=== PATIENT | male | born 1985 | race African-American/Black ===

== ENCOUNTER 2020-02-18 07:10 | Inpatient (IN) | payer MEDICAID ==
[~2020-02-18] VITALS: Ht 177.8 cm; Wt 101.5 kg
[2020-02-18 08:24] LABS: BASO % 0 % (0-3); EOS # 0.1 x10^3/uL (0.0-0.7); EOS % 2 % (0-3); HEMATOCRIT 34.4 % (39.0-53.0); HEMOGLOBIN 11.5 g/dL (13.0-17.5); LYMPH # 0.9 x10^3/uL (1.0-4.8); LYMPH % 15 % (24-48); MEAN CORPUSCULAR HEMOGLOBIN 30 pg (25-35); MEAN CORPUSCULAR HGB CONC 34 g/dL (31-37); MEAN CORPUSCULAR VOLUME 89 fL (79-100); MONO # 0.4 x10^3/uL (0.0-1.1); MONO % 8 % (0-9); NEUT # 4.2 x10^3/uL (1.8-7.7); NEUT % 75 % (31-73); PLATELET COUNT 228 x10^3/uL (140-400); RED BLOOD COUNT 3.89 x10^6/uL (4.30-5.70); RED CELL DISTRIBUTION WIDTH 16.6 % (11.5-14.5); WHITE BLOOD COUNT 5.6 x10^3/uL (4.0-11.0)
--- NOTE | 2020-02-18 08:36 | RAD ---
INDICATION: Shortness of air COMPARISON: None. FINDINGS: Single view of chest obtained. Cardiac silhouette is prominent in size. Right-sided dialysis catheter with tip projecting over the right atrial region. Interstitial and alveolar opacities bilaterally. Obliquely oriented line at the right lower chest but there is lung markings extending peripheral to it therefore most likely cause would be a skin fold rather than pleural line from pneumothorax. IMPRESSION: * Multifocal opacities throughout the bilateral lungs which can be seen with pulmonary edema or multifocal pneumonia. Superimposed pleural effusion is possible as well. Electronically signed by: Jalen Dawn MD (02/18/2020 8:33 AM) [id number]
[2020-02-18 08:47] LABS: CALCIUM 8.3 mg/dL (8.5-10.1); CREATININE 17.9 mg/dL (0.7-1.3); GFR 3.1; POTASSIUM 4.4 mmol/L (3.5-5.1)
[2020-02-18 08:53] LABS: ALBUMIN 3.2 g/dL (3.4-5.0); ALBUMIN/GLOBULIN RATIO 0.6 (1.0-1.7); MAGNESIUM 2.5 mg/dL (1.8-2.4); TOTAL BILIRUBIN 0.3 mg/dL (0.2-1.0); TOTAL PROTEIN 8.4 g/dL (6.4-8.2)
[2020-02-18 09:07] LABS: PROTHROMBIN TIME PATIENT 13.2 SEC (11.7-14.0)
[2020-02-18] MEDS ORDERED: PIPERACILLIN/TAZOBACTAM 2.25 GM in IV NORMAL SALINE 50ML 50 ML IV ONE (09:15)
[2020-02-18] MEDS ORDERED: PIPERACILLIN/TAZOBACTAM 3.375 GM in IV NORMAL SALINE 50ML 50 ML IV ONE (09:15)
--- NOTE | 2020-02-18 09:18 | PHYS DOC ---
Past Medical History Past Medical History: Asthma, HIV, Hypertension, Renal Disease, Renal Failure Past Surgical History: Other Additional Past Surgical Histo: DIALYSIS PERMACATH RIGHT CHEST Smoking Status: Never Smoker Alcohol Use: None General Adult EDM: Chief Complaint: SHORTNESS OF BREATH HPI: HPI: Patient is a 34 year old male who was brought here by EMS from home due to trouble breathing and nonproductive cough started yesterday. Patient had history of end-stage renal failure, on hemodialysis every Tuesday. Patient's last dialysis was on Tuesday. Patient said he was tested for COVID-19 a week ago at [facility] and it came back negative. Patient denies any abdominal pain, no nausea vomiting. Patient denies any fever. Patient could not lie flat on his back due to trouble breathing. Review of Systems: Review of Systems: Constitutional: Denies fever or chills. [] Eyes: Denies change in visual acuity. [] HENT: Denies nasal congestion or sore throat. [] Respiratory: Positive for cough and trouble breathing. Cardiovascular: Denies chest pain or edema. [] GI: Denies abdominal pain, nausea, vomiting, bloody stools or diarrhea. [] : Denies dysuria. [] Musculoskeletal: Denies back pain or joint pain. [] Integument: Denies rash. [] Neurologic: Denies headache, focal weakness or sensory changes. [] Endocrine: Denies polyuria or polydipsia. [] Lymphatic: Denies swollen glands. [] Psychiatric: Denies depression or anxiety. [] Heart Score: Risk Factors: Risk Factors: DM, Current or recent (<one month) smoker, HTN, HLP, family history of CAD, obesity. Risk Scores: Score 0 - 3: 2.5% MACE over next 6 weeks - Discharge Home Score 4 - 6: 20.3% MACE over next 6 weeks - Admit for Clinical Observation Score 7 - 10: 72.7% MACE over next 6 weeks - Early Invasive Strategies Current Medications: Current Medications Medications (Trade) Dose Ordered Sig/[place] Start Time Stop Time Status Last Admin Dose Admin Piperacillin Sod/ Tazobactam Sod 2.25 gm/Sodium Chloride 50 ml @ 100 mls/hr 1X ONCE 02/18/20 09:15 02/18/20 09:44 Piperacillin Sod/ Tazobactam Sod 3.375 gm/Sodium Chloride 50 ml @ 100 mls/hr 1X ONCE 02/18/20 09:15 02/18/20 09:44 UNV Allergies: Allergies: Allergies Coded Allergies Type Severity Reaction Last Updated Verified No Known Drug Allergies 02/18/20 No Physical Exam: PE: Constitutional: Well developed, well nourished, no acute distress, non-toxic appearance. [] HENT: Normocephalic, atraumatic, bilateral external ears normal, oropharynx moist, no oral exudates, nose normal. [] Eyes: PERRLA, EOMI, conjunctiva normal, no discharge. [] Neck: Normal range of motion, no tenderness, supple, no stridor. [] Cardiovascular:Heart rate regular rhythm, no murmur [] Lungs & Thorax: Decrease lung sounds to auscultation bilaterally, rales [] Abdomen: Bowel sounds normal, soft, no tenderness, no masses, no pulsatile masses. [] Skin: Warm, dry, no erythema, no rash. [] Back: No tenderness, no CVA tenderness. [] Extremities: No tenderness, no cyanosis, no clubbing, ROM intact, no edema. [] Neurologic: Alert and oriented X 3, normal motor function, normal sensory function, no focal deficits noted. [] Psychologic: Affect normal, judgement normal, mood normal. [] Current Patient Data: Labs: Laboratory Tests Test 02/18/20 08:07 White Blood Count 5.6 x10^3/uL (4.0-11.0) Red Blood Count 3.89 x10^6/uL (4.30-5.70) L Hemoglobin 11.5 g/dL (13.0-17.5) L Hematocrit 34.4 % (39.0-53.0) L Mean Corpuscular Volume 89 fL (79-100) Mean Corpuscular Hemoglobin 30 pg (25-35) Mean Corpuscular Hemoglobin Concent 34 g/dL (31-37) Red Cell Distribution Width 16.6 % (11.5-14.5) H Platelet Count 228 x10^3/uL (140-400) Neutrophils (%) (Auto) 75 % (31-73) H Lymphocytes (%) (Auto) 15 % (24-48) L Monocytes (%) (Auto) 8 % (0-9) Eosinophils (%) (Auto) 2 % (0-3) Basophils (%) (Auto) 0 % (0-3) Neutrophils # (Auto) 4.2 x10^3/uL (1.8-7.7) Lymphocytes # (Auto) 0.9 x10^3/uL (1.0-4.8) L Monocytes # (Auto) 0.4 x10^3/uL (0.0-1.1) Eosinophils # (Auto) 0.1 x10^3/uL (0.0-0.7) Basophils # (Auto) 0.0 x10^3/uL (0.0-0.2) Sodium Level 138 mmol/L (136-145) Potassium Level 4.4 mmol/L (3.5-5.1) Chloride Level 99 mmol/L (98-107) Carbon Dioxide Level 23 mmol/L (21-32) Anion Gap 16 (6-14) H Blood Urea Nitrogen 77 mg/dL (8-26) H Creatinine 17.9 mg/dL (0.7-1.3) H Estimated GFR (Cockcroft-Gault) 3.1 BUN/Creatinine Ratio 4 (6-20) L Glucose Level 90 mg/dL (70-99) Calcium Level 8.3 mg/dL (8.5-10.1) L Magnesium Level 2.5 mg/dL (1.8-2.4) H Total Bilirubin 0.3 mg/dL (0.2-1.0) Aspartate Amino Transferase (AST) 23 U/L (15-37) Alanine Aminotransferase (ALT) 21 U/L (16-63) Alkaline Phosphatase 55 U/L (46-116) Troponin I Quantitative 0.074 ng/mL (0.000-0.055) Total Protein 8.4 g/dL (6.4-8.2) H Albumin 3.2 g/dL (3.4-5.0) L Albumin/Globulin Ratio 0.6 (1.0-1.7) L Laboratory Tests 02/18/20 08:07 Laboratory Tests 02/18/20 08:07 Vital Signs: Vital Signs Date Time Temp Pulse Resp B/P (MAP) Pulse Ox O2 Delivery O2 Flow Rate FiO2 02/18/20 08:11 90 211/127 (155) 93 Nasal Cannula 4.0 5/25/20 07:10 98.4 26 98.4 EKG: EKG: EKG was done at [place] [address], heart rate of 87 bpm, sinus rhythm, no ST segment elevation. Diffuse T wave inversion. EKG was read by ED physician. Radiology/Procedures: Radiology/Procedures: [][facility] [address] [place] [address] IMAGING REPORT Signed PATIENT: NAYANA OSBORN ACCOUNT: [id number] : 1985 LOCATION: ER AGE: 34 SEX: M EXAM STATUS: PRE ER ORD. PHYSICIAN: JUNIOR DRIVER DO REASON: SOA PROCEDURE: PORTABLE CHEST 1V INDICATION: Shortness of air COMPARISON: None. FINDINGS: Single view of chest obtained. Cardiac silhouette is prominent in size. Right-sided dialysis catheter with tip projecting over the right atrial region. Interstitial and alveolar opacities bilaterally. Obliquely oriented line at the right lower chest but there is lung markings extending peripheral to it therefore most likely cause would be a skin fold rather than pleural line from pneumothorax. IMPRESSION: * Multifocal opacities throughout the bilateral lungs which can be seen with pulmonary edema or multifocal pneumonia. Superimposed pleural effusion is possible as well. Electronically signed by: En Paul MD (02/18/2020 8:33 AM) [id number] DICTATED and SIGNED BY: EN PAUL MD DATE: 02/18/20 0833 Course & Med Decision Making: Course & Med Decision Making Pertinent Labs and Imaging studies reviewed. (See chart for details) Patient is a 33-year-old male who was evaluated in the ER today due to nonp roductive cough and trouble breathing. Patient was found to have pneumonia, suspect COVID-19 infection. Patient has end-stage renal failure, his blood pressure was elevated. Patient will need dialysis today. Discussed with nephrology on-call Dr. Melara who will see patient today. COVID-19 CRITERIA: The patient was evaluated during the global COVID-19 pandemic, and that diagnosis was suspected/considered upon their initial presentation. Their evaluation, treatment and testing was consistent with current guidelines for patients who present with complaints or symptoms that may be related to COVID-19. Critical care time was [45] minutes which includes time at bedside, spent in discussion of patient's care with specialist and/or family members, with interpretation of laboratory and/or radiological studies and is exclusive of procedures. Dragon Disclaimer: Dragon Disclaimer: This electronic medical record was generated, in whole or in part, using a voice recognition dictation system. Departure Departure Impression: Primary Impression: Pneumonia Additional Impressions: Suspected 2019-nCoV infection ESRD (end stage renal disease) on dialysis Hypertension Disposition: ADMITTED INPATIENT Admitting Physician: ASHLEE (Dr. Spangler) Condition: STABLE COVID-19 Assessment: COVID-19 Patient Risks: Age 65 or older: No Sign of co-morbidity: Yes Exp to person + for COVID: No Exp to PUI: Yes Travel from affected area: No Lower respiratory symptoms: Yes Fever: No Other: Yes (Trouble breathing) PPE Use: Full PPE with N95 mask or PAPR: Yes JUNIOR DRIVER DO February 18, 2020 09:18
[2020-02-18] MEDS ORDERED: hydrALAZINE 20 MG/ML VIAL. IVP ONE (09:30)
--- NOTE | 2020-02-18 09:31 | PDOC1 ---
History and Physical Date of Admission Date of Admission DATE: 02/18/20 TIME: 09:28 Identification/Chief Complaint Chief Complaint Shortness of breath Source Source: Patient History of Present Illness History of Present Illness Mr Lynch is a 34yo M w/ PMHx Asthma, HIV, Hypertension, ESRD who was brought here by EMS from home due to trouble breathing and nonproductive cough started suddenly yesterday. Patient had history of end-stage renal failure, on hemodialysis every Tuesday. Patient's last dialysis was on 02/15/2020, and due to the holiday weekend is not scheduled for dialysis until 02/18. Patient said he was tested for COVID-19 a week ago at [facility] and it came back negative. Patient denies any abdominal pain, no nausea vomiting. Patient denies any fever. Patient could not lie flat on his back due to trouble breathing. CXR with diffuse interstitial infiltrates bilaterally. Afebrile WBC 5.6 Hb 11.5, platelets 228 NA 138, K4.4, BUN 7 7, CR 17.9, glucose 90, troponin 0 0.076, albumin 3.2. BP 219/1 2 8, hypoxic requiring 4 L nasal cannula oxygen. He is actively coughing in front of me. States he is jew about taking his HIV medications. No recent sick contacts. EKG sinus with no ST segment changes, diffuse T wave inversions. Past Medical History Cardiovascular: HTN Pulmonary: Asthma GI: No pertinent hx Heme/Onc: Anemia NOS Hepatobiliary: No pertinent hx Psych: No pertinent hx Rheumatologic: No pertinent hx Infectious disease: HIV ENT: No pertinent hx Renal/: Chronic renal failure Endocrine: No pertinent hx Dermatology: No pertinent hx Past Surgical History Past Surgical History: Other (right IJ tunneled dialysis catheter) Family History Family History: High Cholestrol, Hypertension Social History Smoke: No ALCOHOL: none Drugs: None Current Problem List Problem List Problems Medical Problems: (1) ESRD (end stage renal disease) on dialysis Status: Acute (2) Hypertension Status: Acute (3) Pneumonia Status: Acute (4) Suspected 2019-nCoV infection Status: Acute Current Medications Current Medications Current Medications Piperacillin Sod/ Tazobactam Sod 3.375 gm/Sodium Chloride 50 ml @ 100 mls/hr 1X ONCE IV ; Start 02/18/20 at 09:15; Stop 02/18/20 at 09:44; Status UNV Piperacillin Sod/ Tazobactam Sod 2.25 gm/Sodium Chloride 50 ml @ 100 mls/hr 1X ONCE IV ; Start 02/18/20 at 09:15; Stop 02/18/20 at 09:44 Hydralazine HCl (Apresoline Inj) 20 mg 1X ONCE IVP ; Start 02/18/20 at 09:30; Stop 02/18/20 at 09:31 Allergies Allergies: Coded Allergies: No Known Drug Allergies (Unverified , 02/18/20) ROS General: YES: Fatigue, Malaise; No: Chills, Night Sweats, Appetite, Other PSYCHOLOGICAL ROS: YES: Anxiety; No: Behavioral Disorder, Concentration difficultie, Decreased libido, Depression, Disorientation, Hallucinations, Hostility, Irritablity, Memory difficulties, Mood Swings, Obsessive thoughts, Physical abuse, Sexual abuse, Sleep disturbances, Suicidal ideation, Other Eyes: No Blurry vision, No Decreased vision, No Double vision, No Dry eyes, No Excessive tearing, No Eye Pain, No Itchy Eyes, No Loss of vision, No Photophobia, No Scotomata, No Uses contacts, No Uses glasses, No Other HEENT: No: Heacaches, Visual Changes, Hearing change, Nasal congestion, Nasal discharge, Oral lesions, Sinus pain, Sore Throat, Epistaxis, Sneezing, Snoring, Tinnitus, Vertigo, Vocal changes, Other ALLERGY AND IMMUNOLOGY: No: Hives, Insect Bite Sensitivity, Itchy/Watery Eyes, Nasal Congestion, Post Nasal Drip, Seasonal Allergies, Other Hematological and Lymphatic: No: Bleeding Problems, Blood Clots, Blood Transfusions, Brusing, Night Sweats, Pallor, Swollen Lymph Nodes, Other ENDOCRINE: No: Breast Changes, Galactorrhea, Hair Pattern Changes, Hot Flashes, Malaise/lethargy, Mood Swings, Palpitations, Polydipsia/polyuria, Skin Changes, Temperature Intolerance, Unexpected Weight Changes, Other Breast: No New/Changing Breast Lumps, No Nipple changes, No Nipple discharge, No Other Respiratory: YES: Cough, Orthopnea, Pleuritic Pain, Shortness of breath, SOB with excertion, Sputum Changes, Tachypnea, Wheezing; No: Hemoptysis, Stridor, Other Cardiovascular: yes Chest Pain, yes Orthopnea; No Palpitations, No Paroxysmal Noc. Dyspnea, No Edema, No Lt Headedness, No Other Gastrointestinal: Yes Nausea; No Vomiting, No Abdominal Pain, No Diarrhea, No Constipation, No Melena, No Hematochezia, No Other Genitourinary: No Dysuria, No Frequency, No Incontinence, No Hematuria, No Retention, No Discharge, No Urgency, No Pain, No Flank Pain, No Other, No , No , No , No , No , No , No Musculoskeletal: No Gait Disturbance, No Joint Pain, No Joint Stiffness, No Joint Swelling, No Muscle Pain, No Muscular Weakness, No Pain In:, No Swelling In:, No Other Neurological: No Behavorial Changes, No Bowel/Bladder ControlChng, No Confusion, No Dizziness, No Gait Disturbance, No Headaches, No Impaired Coord/balance, No Memory Loss, No Numbness/Tingling, No Seizures, No Speech Problems, No Tremors, No Visual Changes, No Weakness, No Other Skin: No Dry Skin, No Eczema, No Hair Changes, No Lumps, No Mole Changes, No M ottling, No Nail Changes, No Pruritus, No Rash, No Skin Lesion Changes, No Other, No Acne Physical Exam General: Alert, Oriented X3, Cooperative, moderate distress HEENT: Atraumatic, PERRLA, EOMI, Mucous membr. moist/pink Lungs: Other (Bilateral crackles) Abdomen: Normal bowel sounds, Soft, No tenderness, No hepatosplenomegaly, No masses Rectal Exam: not examined Extremities: No clubbing, No cyanosis, No edema, Normal pulses, No tenderness/swelling Skin: No rashes, No breakdown, No significant lesion Neuro: Normal gait, Normal speech, Strength at 5/5 X4 ext, Normal tone, Se nsation intact, Cranial nerves 3-12 NL, Reflexes 2+ Psych/Mental Status: Mental status NL, Mood NL Vitals Vitals Vital Signs Date Time Temp Pulse Resp B/P (MAP) Pulse Ox O2 Delivery O2 Flow Rate FiO2 02/18/20 08:11 90 211/127 (155) 93 Nasal Cannula 4.0 02/18/20 07:10 98.4 26 98.4 Labs Labs Laboratory Tests Test 02/18/20 08:07 White Blood Count 5.6 x10^3/uL (4.0-11.0) Red Blood Count 3.89 x10^6/uL (4.30-5.70) Hemoglobin 11.5 g/dL (13.0-17.5) Hematocrit 34.4 % (39.0-53.0) Mean Corpuscular Volume 89 fL (79-100) Mean Corpuscular Hemoglobin 30 pg (25-35) Mean Corpuscular Hemoglobin Concent 34 g/dL (31-37) Red Cell Distribution Width 16.6 % (11.5-14.5) Platelet Count 228 x10^3/uL (140-400) Neutrophils (%) (Auto) 75 % (31-73) Lymphocytes (%) (Auto) 15 % (24-48) Monocytes (%) (Auto) 8 % (0-9) Eosinophils (%) (Auto) 2 % (0-3) Basophils (%) (Auto) 0 % (0-3) Neutrophils # (Auto) 4.2 x10^3/uL (1.8-7.7) Lymphocytes # (Auto) 0.9 x10^3/uL (1.0-4.8) Monocytes # (Auto) 0.4 x10^3/uL (0.0-1.1) Eosinophils # (Auto) 0.1 x10^3/uL (0.0-0.7) Basophils # (Auto) 0.0 x10^3/uL (0.0-0.2) Sodium Level 138 mmol/L (136-145) Potassium Level 4.4 mmol/L (3.5-5.1) Chloride Level 99 mmol/L (98-107) Carbon Dioxide Level 23 mmol/L (21-32) Anion Gap 16 (6-14) Blood Urea Nitrogen 77 mg/dL (8-26) Creatinine 17.9 mg/dL (0.7-1.3) Estimated GFR (Cockcroft-Gault) 3.1 BUN/Creatinine Ratio 4 (6-20) Glucose Level 90 mg/dL (70-99) Calcium Level 8.3 mg/dL (8.5-10.1) Magnesium Level 2.5 mg/dL (1.8-2.4) Total Bilirubin 0.3 mg/dL (0.2-1.0) Aspartate Amino Transf (AST/SGOT) 23 U/L (15-37) Alanine Aminotransferase (ALT/SGPT) 21 U/L (16-63) Alkaline Phosphatase 55 U/L (46-116) Troponin I Quantitative 0.074 ng/mL (0.000-0.055) Total Protein 8.4 g/dL (6.4-8.2) Albumin 3.2 g/dL (3.4-5.0) Albumin/Globulin Ratio 0.6 (1.0-1.7) Laboratory Tests Test 02/18/20 08:07 White Blood Count 5.6 x10^3/uL (4.0-11.0) Red Blood Count 3.89 x10^6/uL (4.30-5.70) Hemoglobin 11.5 g/dL (13.0-17.5) Hematocrit 34.4 % (39.0-53.0) Mean Corpuscular Volume 89 fL (79-100) Mean Corpuscular Hemoglobin 30 pg (25-35) Mean Corpuscular Hemoglobin Concent 34 g/dL (31-37) Red Cell Distribution Width 16.6 % (11.5-14.5) Platelet Count 228 x10^3/uL (140-400) Neutrophils (%) (Auto) 75 % (31-73) Lymphocytes (%) (Auto) 15 % (24-48) Monocytes (%) (Auto) 8 % (0-9) Eosinophils (%) (Auto) 2 % (0-3) Basophils (%) (Auto) 0 % (0-3) Neutrophils # (Auto) 4.2 x10^3/uL (1.8-7.7) Lymphocytes # (Auto) 0.9 x10^3/uL (1.0-4.8) Monocytes # (Auto) 0.4 x10^3/uL (0.0-1.1) Eosinophils # (Auto) 0.1 x10^3/uL (0.0-0.7) Basophils # (Auto) 0.0 x10^3/uL (0.0-0.2) Sodium Level 138 mmol/L (136-145) Potassium Level 4.4 mmol/L (3.5-5.1) Chloride Level 99 mmol/L (98-107) Carbon Dioxide Level 23 mmol/L (21-32) Anion Gap 16 (6-14) Blood Urea Nitrogen 77 mg/dL (8-26) Creatinine 17.9 mg/dL (0.7-1.3) Estimated GFR (Cockcroft-Gault) 3.1 BUN/Creatinine Ratio 4 (6-20) Glucose Level 90 mg/dL (70-99) Calcium Level 8.3 mg/dL (8.5-10.1) Magnesium Level 2.5 mg/dL (1.8-2.4) Total Bilirubin 0.3 mg/dL (0.2-1.0) Aspartate Amino Transf (AST/SGOT) 23 U/L (15-37) Alanine Aminotransferase (ALT/SGPT) 21 U/L (16-63) Alkaline Phosphatase 55 U/L (46-116) Troponin I Quantitative 0.074 ng/mL (0.000-0.055) Total Protein 8.4 g/dL (6.4-8.2) Albumin 3.2 g/dL (3.4-5.0) Albumin/Globulin Ratio 0.6 (1.0-1.7) Images Images CXR - Cardiac silhouette is prominent in size. Right-sided dialysis catheter with tip projecting over the right atrial region. Interstitial and alveolar opacities bilaterally. Obliquely oriented line at the right lower chest but there is lung markings extending peripheral to it therefore most likely cause would be a skin fold rather than pleural line from pneumothorax. IMPRESSION: Multifocal opacities throughout the bilateral lungs which can be seen with pulmonary edema or multifocal pneumonia. Superimposed pleural effusion is possible as well. VTE Prophylaxis Ordered VTE Prophylaxis Devices: No VTE Pharmacological Prophylaxi: Yes Assessment/Plan Assessment/Plan A/P: Acute hypoxic respiratory failure - no history of O2 requirements, likely fluid overload complicated by a possible pneumonia, likely gram negative given his dialysis status and asthma history Pneumonia - will treat with zosyn Hypertensive emergency given hydralazine, will add labetalol, reconcile home medications, needs urgent dialysis. Chest pain - will trend troponins, likely 2/2 fluid overload/pneumonia. Suspected 2019-nCoV infection - will place in COVID isolation unit, f/u RT-PCR r esults ESRD (end stage renal disease) on dialysis - started in 2019, he is not clear about the etiology. Will consult nephrology given his symptoms of hypoxia and labs consistent with ESRD he needs dialysis Anemia - of chronic disease, will monitor Asthma - with acute respiratory distress, will avoid nebulizer treatments until COVID 19 status established. Ativan prn for anxiety HIV - consistent with his medications. Unknown viral load and CD4+ status FEN - Renal diet PPX - heparin FULL CODE Dispo - inpatient for 2 midnights JENNIFER WHELAN MD February 18, 2020 09:31
[2020-02-18] MEDS ORDERED: guaiFENesin DM 200MG/20MG 10 ML SYRUP ONE (09:51)
[2020-02-18] MEDS: LORazepam 0.5 MG TABLET PO PRN ×2 (09:54→23:51)
[2020-02-18] MEDS ORDERED: guaiFENesin ORAL 200 MG/10 ML LIQUID. PO PRN (10:00)
[2020-02-18] MEDS ORDERED: ONDANSETRON PF 4 MG/2 ML VIAL. IV PRN (10:00)
[2020-02-18 10:30] VITALS: BP 193/95
[2020-02-18] MEDS ORDERED: CARV25TA2 PO (12:11)
[2020-02-18] MEDS ORDERED: [UNRECOGNIZED DRUG - CODE] PO (12:11)
[2020-02-18] MEDS ORDERED: LAMI100T3 PO (12:11)
[2020-02-18] MEDS ORDERED: AMLO5TAB10 PO (12:11)
--- NOTE | 2020-02-18 12:18 | PDOC ---
PROGRESS NOTES Subjective Subjective Patient is a 34-year-old gentleman with known ESRD. He was admitted to our hospital with suspicion for COVID-19 (PUI) after he presented with complaints of shortness of breath. A full consult and exam was not performed due to the above. I have reviewed Dr. Crandall's and ER notes for details. We will proceed with dialysis today. ESRD Dialysis as below F 180 NR 4.0 Hrs 3 K 2.5 Ca 140 Na 35 HC03 Qb 350 + Qd 500+ Heparin 0 Units Uf to dry weight as tolerated May give 25-50 gms of 25% Albumin if needed to maintain Hemodynamic stability Treatment plan reviewed and discussed with gate supervisor Objective Objective Vital Signs Date Time Temp Pulse Resp B/P (MAP) Pulse Ox O2 Delivery O2 Flow Rate FiO2 02/18/20 10:30 98.4 100 19 193/95 (127) 98 Nasal Cannula 6.0 98.4 Assessment Assessment Problems Medical Problems: (1) ESRD (end stage renal disease) on dialysis Status: Acute (2) Hypertension Status: Acute (3) Pneumonia Status: Acute (4) Suspected 2019-nCoV infection Status: Acute Comment Review of Relevant I have reviewed the following items virgen (where applicable) has been applied. Labs Laboratory Tests Test 02/18/20 08:07 White Blood Count 5.6 x10^3/uL (4.0-11.0) Red Blood Count 3.89 x10^6/uL (4.30-5.70) Hemoglobin 11.5 g/dL (13.0-17.5) Hematocrit 34.4 % (39.0-53.0) Mean Corpuscular Volume 89 fL (79-100) Mean Corpuscular Hemoglobin 30 pg (25-35) Mean Corpuscular Hemoglobin Concent 34 g/dL (31-37) Red Cell Distribution Width 16.6 % (11.5-14.5) Platelet Count 228 x10^3/uL (140-400) Neutrophils (%) (Auto) 75 % (31-73) Lymphocytes (%) (Auto) 15 % (24-48) Monocytes (%) (Auto) 8 % (0-9) Eosinophils (%) (Auto) 2 % (0-3) Basophils (%) (Auto) 0 % (0-3) Neutrophils # (Auto) 4.2 x10^3/uL (1.8-7.7) Lymphocytes # (Auto) 0.9 x10^3/uL (1.0-4.8) Monocytes # (Auto) 0.4 x10^3/uL (0.0-1.1) Eosinophils # (Auto) 0.1 x10^3/uL (0.0-0.7) Basophils # (Auto) 0.0 x10^3/uL (0.0-0.2) Prothrombin Time 13.2 SEC (11.7-14.0) Prothromb Time International Ratio 1.0 (0.8-1.1) Activated Partial Thromboplast Time 32 SEC (24-38) Sodium Level 138 mmol/L (136-145) Potassium Level 4.4 mmol/L (3.5-5.1) Chloride Level 99 mmol/L (98-107) Carbon Dioxide Level 23 mmol/L (21-32) Anion Gap 16 (6-14) Blood Urea Nitrogen 77 mg/dL (8-26) Creatinine 17.9 mg/dL (0.7-1.3) Estimated GFR (Cockcroft-Gault) 3.1 BUN/Creatinine Ratio 4 (6-20) Glucose Level 90 mg/dL (70-99) Calcium Level 8.3 mg/dL (8.5-10.1) Magnesium Level 2.5 mg/dL (1.8-2.4) Total Bilirubin 0.3 mg/dL (0.2-1.0) Aspartate Amino Transf (AST/SGOT) 23 U/L (15-37) Alanine Aminotransferase (ALT/SGPT) 21 U/L (16-63) Alkaline Phosphatase 55 U/L (46-116) Troponin I Quantitative 0.074 ng/mL (0.000-0.055) Total Protein 8.4 g/dL (6.4-8.2) Albumin 3.2 g/dL (3.4-5.0) Albumin/Globulin Ratio 0.6 (1.0-1.7) Laboratory Tests Test 02/18/20 08:07 White Blood Count 5.6 x10^3/uL (4.0-11.0) Red Blood Count 3.89 x10^6/uL (4.30-5.70) Hemoglobin 11.5 g/dL (13.0-17.5) Hematocrit 34.4 % (39.0-53.0) Mean Corpuscular Volume 89 fL (79-100) Mean Corpuscular Hemoglobin 30 pg (25-35) Mean Corpuscular Hemoglobin Concent 34 g/dL (31-37) Red Cell Distribution Width 16.6 % (11.5-14.5) Platelet Count 228 x10^3/uL (140-400) Neutrophils (%) (Auto) 75 % (31-73) Lymphocytes (%) (Auto) 15 % (24-48) Monocytes (%) (Auto) 8 % (0-9) Eosinophils (%) (Auto) 2 % (0-3) Basophils (%) (Auto) 0 % (0-3) Neutrophils # (Auto) 4.2 x10^3/uL (1.8-7.7) Lymphocytes # (Auto) 0.9 x10^3/uL (1.0-4.8) Monocytes # (Auto) 0.4 x10^3/uL (0.0-1.1) Eosinophils # (Auto) 0.1 x10^3/uL (0.0-0.7) Basophils # (Auto) 0.0 x10^3/uL (0.0-0.2) Prothrombin Time 13.2 SEC (11.7-14.0) Prothromb Time International Ratio 1.0 (0.8-1.1) Activated Partial Thromboplast Time 32 SEC (24-38) Sodium Level 138 mmol/L (136-145) Potassium Level 4.4 mmol/L (3.5-5.1) Chloride Level 99 mmol/L (98-107) Carbon Dioxide Level 23 mmol/L (21-32) Anion Gap 16 (6-14) Blood Urea Nitrogen 77 mg/dL (8-26) Creatinine 17.9 mg/dL (0.7-1.3) Estimated GFR (Cockcroft-Gault) 3.1 BUN/Creatinine Ratio 4 (6-20) Glucose Level 90 mg/dL (70-99) Calcium Level 8.3 mg/dL (8.5-10.1) Magnesium Level 2.5 mg/dL (1.8-2.4) Total Bilirubin 0.3 mg/dL (0.2-1.0) Aspartate Amino Transf (AST/SGOT) 23 U/L (15-37) Alanine Aminotransferase (ALT/SGPT) 21 U/L (16-63) Alkaline Phosphatase 55 U/L (46-116) Troponin I Quantitative 0.074 ng/mL (0.000-0.055) Total Protein 8.4 g/dL (6.4-8.2) Albumin 3.2 g/dL (3.4-5.0) Albumin/Globulin Ratio 0.6 (1.0-1.7) Medications Current Medications Piperacillin Sod/ Tazobactam Sod 3.375 gm/Sodium Chloride 50 ml @ 100 mls/hr 1X ONCE IV ; Start 02/18/20 at 09:15; Stop 02/18/20 at 09:44; Status UNV Piperacillin Sod/ Tazobactam Sod 2.25 gm/Sodium Chloride 50 ml @ 100 mls/hr 1X ONCE IV Last administered on 02/18/20at 09:26; Start 02/18/20 at 09:15; Stop 02/18/20 at 09:44; Status DC Hydralazine HCl (Apresoline Inj) 20 mg 1X ONCE IVP Last administered on 02/18/20at 09:28; Start 02/18/20 at 09:30; Stop 02/18/20 at 09:31; Status DC Ondansetron HCl (Zofran) 4 mg PRN Q4HRS PRN IV NAUSEA/VOMITING; Start 02/18/20 at 10:00 Acetaminophen (Tylenol) 650 mg PRN Q4HRS PRN PO TEMP OVER 100.4F OR MILD PAIN; Start 02/18/20 at 10:00 Guaifenesin (Robitussin) 200 mg PRN Q4HRS PRN PO COUGH; Start 02/18/20 at 10:00 Lorazepam (Ativan) 0.5 mg PRN Q4HRS PRN PO ANXIETY / AGITATION Last administered on 02/18/20at 09:54; Start 02/18/20 at 10:00 Piperacillin Sod/ Tazobactam Sod 2.25 gm/Sodium Chloride 50 ml @ 100 mls/hr Q6HRS IV ; Start 02/18/20 at 12:00 Labetalol HCl (Normodyne Iv Push) 10 mg PRN Q2HRS PRN IVP HTN, SBP > 160mmHg; Start 02/18/20 at 10:00 Guaifenesin (Robitussin Dm) 10 ml STK-MED ONCE .ROUTE ; Start 02/18/20 at 09:51; Stop 02/18/20 at 09:51; Status DC Heparin Sodium (Porcine) (Heparin Sodium) 5,000 unit Q8HRS SQ ; Start 02/18/20 at 14:00 Active Scripts Active Reported Ziagen (Abacavir Sulfate) 300 Mg Tablet 600 Mg PO BID Lamivudine 100 Mg Tablet 50 Mg PO DAILY Carvedilol 25 Mg Tablet 25 Mg PO BIDWMEALS Amlodipine Besylate 5 Mg Tablet 5 Mg PO DAILY Vitals/I & O Vital Sign - Last 24 Hours 02/18/20 02/18/20 02/18/20 02/18/20 07:10 07:11 07:41 08:11 Temp 98.4 98.4 Pulse 95 94 109 90 Resp 26 B/P (MAP) 219/128 (158) 219/128 (158) 221/136 (164) 211/127 (155) Pulse Ox 96 98 93 93 O2 Delivery Nasal Cannula Nasal Cannula Nasal Cannula Nasal Cannula O2 Flow Rate 4.0 4.0 4.0 02/18/20 02/18/20 02/18/20 02/18/20 08:30 09:00 09:28 09:30 Pulse 96 116 99 89 B/P (MAP) 205/115 (145) 227/126 (159) 227/126 191/111 (137) Pulse Ox 94 92 97 O2 Delivery Nasal Cannula Nasal Cannula Nasal Cannula O2 Flow Rate 4.0 4.0 6.0 02/18/20 02/18/20 09:55 10:30 Temp 98.4 98.4 Pulse 91 100 Resp 19 B/P (MAP) 192/102 (132) 193/95 (127) Pulse Ox 97 98 O2 Delivery Nasal Cannula Nasal Cannula O2 Flow Rate 6.0 6.0 CAROLINA CH MD February 18, 2020 12:17
[2020-02-18] MEDS: PIPERACILLIN/TAZOBACTAM 2.25 GM in IV NORMAL SALINE 50ML 50 ML IV SCH ×3 (12:21→23:00)
[2020-02-18] MEDS: LABETALOL 20 MG/4 ML DISP.SYRIN. IVP PRN ×2 (12:21→18:41)
[2020-02-18] MEDS ORDERED: DOLU25TA PO (13:31)
[2020-02-18] MEDS ORDERED: IV NORMAL SALINE 1000ML BAG 1,000 ML IV PRN ×2 (13:41)
[2020-02-18] MEDS ORDERED: ACETAMINOPHEN 500 MG TABLET PO PRN (13:45)
[2020-02-18] MEDS ORDERED: DIALYSIS PATIENT. MC PRN (13:45)
[2020-02-18] MEDS ORDERED: diphenhydrAMINE 50 MG/ML VIAL IV PRN ×2 (13:45)
[2020-02-18] MEDS ORDERED: ALBUMIN HUMAN 25% 200 ML IV PRN (13:45)
[2020-02-18] MEDS: amLODIPine BESYLATE 5 MG TABLET PO SCH (13:48)
[2020-02-18] MEDS: HEPARIN for SUB-Q USE 5,000 UNIT/ML VIAL. SQ SCH ×2 (13:56→21:12)
[2020-02-18 14:00] VITALS: BP 165/102
[2020-02-18] MEDS: ACETAMINOPHEN 325 MG TABLET. PO PRN ×2 (15:55→22:04)
--- NOTE | 2020-02-18 16:05 | EKG ---
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
[2020-02-18] MEDS: CARVEDILOL 12.5 MG TABLET. PO SCH (18:40)
[2020-02-18 19:30] VITALS: BP 170/93
[2020-02-18] MEDS: ABACAVIR 300 MG PO SCH (20:53)
[2020-02-18] MEDS ORDERED: ABACAVIR 300 MG PO SCH (21:00)
[2020-02-18 22:59] VITALS: BP 178/101
[2020-02-19 03:00] VITALS: BP 195/117
[2020-02-19] MEDS: LABETALOL 20 MG/4 ML DISP.SYRIN. IVP PRN (03:25)
[2020-02-19] MEDS: PIPERACILLIN/TAZOBACTAM 2.25 GM in IV NORMAL SALINE 50ML 50 ML IV SCH (05:01)
[2020-02-19] MEDS: HEPARIN for SUB-Q USE 5,000 UNIT/ML VIAL. SQ SCH ×2 (05:02→14:00)
[2020-02-19 05:49] LABS: CALCIUM 8.3 mg/dL (8.5-10.1); CREATININE 11.6 mg/dL (0.7-1.3); GFR 6.2
[2020-02-19 07:00] VITALS: BP 191/125
[2020-02-19] MEDS ORDERED: IV NORMAL SALINE 1000ML BAG 1,000 ML IV PRN ×2 (07:29)
[2020-02-19] MEDS ORDERED: ACETAMINOPHEN 500 MG TABLET PO PRN (07:30)
[2020-02-19] MEDS ORDERED: 0.9 % SODIUM CHLORIDE 10 ML DISP.SYRIN. IV PRN ×2 (07:30)
[2020-02-19] MEDS ORDERED: ALBUMIN HUMAN 25% 200 ML IV PRN (07:30)
[2020-02-19] MEDS ORDERED: diphenhydrAMINE 50 MG/ML VIAL IV PRN ×2 (07:30)
[2020-02-19] MEDS ORDERED: DIALYSIS PATIENT. MC PRN (07:30)
--- NOTE | 2020-02-19 08:41 | PDOC ---
PROGRESS NOTES Chief Complaint Chief Complaint A/P: Acute hypoxic respiratory failure - no history of O2 requirements, likely fluid overload complicated by a possible pneumonia, likely gram negative given his lolita lysis status and asthma Pneumonia - will treat with zosyn, given his vast improvement after dialysis and lack of cough, will change to augmentin for 4 days Hypertensive emergency given hydralazine, will add labetalol, reconcile home medications, improved with urgent dialysis. Chest pain - will trend troponins, likely 2/2 fluid overload/pneumonia. Resolved Suspected 2019-nCoV infection - in COVID isolation unit, negative RT-PCR results ESRD (end stage renal disease) on dialysis - started in 2019, he is not clear about the etiology. Will consult nephrology given his symptoms of hypoxia and labs consistent with ESRD he improved with dialysis Anemia - of chronic disease, will monitor Asthma - with acute respiratory distress, improved with ativan HIV - consistent with his medications. Unknown viral load and CD4+ status FEN - Renal diet PPX - heparin FULL CODE Dispo - inpatient for 2 midnights History of Present Illness History of Present Illness Mr Lynch is a 34yo M w/ PMHx Asthma, HIV, Hypertension, ESRD who was brought here by EMS from home due to trouble breathing and nonproductive cough started suddenly yesterday. Patient had history of end-stage renal failure, on hemodialysis every Tuesday. Patient's last dialysis was on 02/15/2020, and due to the holiday weekend is not scheduled for dialysis until 02/18. Patient said he was tested for COVID-19 a week ago at [facility] and it came back negative. Patient denies any abdominal pain, no nausea vomiting. Patient denies any fever. Patient could not lie flat on his back due to trouble breathing. CXR with diffuse interstitial infiltrates bilaterally. Afebrile WBC 5.6 Hb 11.5, platelets 228 NA 138, K4.4, BUN 7 7, CR 17.9, glucose 90, troponin 0 0.076, albumin 3.2. BP 219/1 2 8, hypoxic requiring 4 L nasal cannula oxygen. He is actively coughing in front of me. States he is evangelical about taking his HIV medications. No recent sick contacts. EKG sinus with no ST segment changes, diffuse T wave inversions. Had emergent dialysis on 02/17. BP still elevated overnight. He is feeling better, but will not get off the phone during interview, but tells me he wants to go home and have dialysis tomorrow at his regular time, does not wish to have additional session today. COVID 19 testing resulted Negative. Vitals Vitals Vital Signs Date Time Temp Pulse Resp B/P (MAP) Pulse Ox O2 Delivery O2 Flow Rate FiO2 02/19/20 03:25 75 195/117 02/19/20 03:00 97.8 20 95 Room Air 97.8 02/18/20 22:59 2.0 Physical Exam General: Alert, Oriented X3, Cooperative, moderate distress Heart: Regular rate, Normal S1, Normal S2 Lungs: Clear Abdomen: Normal bowel sounds, Soft, No tenderness, No hepatosplenomegaly, No masses Extremities: No clubbing, No cyanosis, No edema, Normal pulses, No tenderness/s welling Skin: No rashes, No breakdown, No significant lesion Labs LABS Laboratory Tests Test 02/19/20 03:53 Sodium Level 138 mmol/L (136-145) Potassium Level 4.0 mmol/L (3.5-5.1) Chloride Level 98 mmol/L (98-107) Carbon Dioxide Level 30 mmol/L (21-32) Anion Gap 10 (6-14) Blood Urea Nitrogen 36 mg/dL (8-26) Creatinine 11.6 mg/dL (0.7-1.3) Estimated GFR (Cockcroft-Gault) 6.2 Glucose Level 100 mg/dL (70-99) Calcium Level 8.3 mg/dL (8.5-10.1) Assessment and Plan Assessmemt and Plan Problems Medical Problems: (1) ESRD (end stage renal disease) on dialysis Status: Acute (2) Hypertension Status: Acute (3) Pneumonia Status: Acute (4) Suspected 2019-nCoV infection Status: Acute Comment Review of Relevant I have reviewed the following items virgen (where applicable) has been applied. Labs Laboratory Tests Test 02/18/20 08:07 02/19/20 03:53 White Blood Count 5.6 x10^3/uL (4.0-11.0) Red Blood Count 3.89 x10^6/uL (4.30-5.70) Hemoglobin 11.5 g/dL (13.0-17.5) Hematocrit 34.4 % (39.0-53.0) Mean Corpuscular Volume 89 fL (79-100) Mean Corpuscular Hemoglobin 30 pg (25-35) Mean Corpuscular Hemoglobin Concent 34 g/dL (31-37) Red Cell Distribution Width 16.6 % (11.5-14.5) Platelet Count 228 x10^3/uL (140-400) Neutrophils (%) (Auto) 75 % (31-73) Lymphocytes (%) (Auto) 15 % (24-48) Monocytes (%) (Auto) 8 % (0-9) Eosinophils (%) (Auto) 2 % (0-3) Basophils (%) (Auto) 0 % (0-3) Neutrophils # (Auto) 4.2 x10^3/uL (1.8-7.7) Lymphocytes # (Auto) 0.9 x10^3/uL (1.0-4.8) Monocytes # (Auto) 0.4 x10^3/uL (0.0-1.1) Eosinophils # (Auto) 0.1 x10^3/uL (0.0-0.7) Basophils # (Auto) 0.0 x10^3/uL (0.0-0.2) Prothrombin Time 13.2 SEC (11.7-14.0) Prothromb Time International Ratio 1.0 (0.8-1.1) Activated Partial Thromboplast Time 32 SEC (24-38) Sodium Level 138 mmol/L (136-145) 138 mmol/L (136-145) Potassium Level 4.4 mmol/L (3.5-5.1) 4.0 mmol/L (3.5-5.1) Chloride Level 99 mmol/L (98-107) 98 mmol/L (98-107) Carbon Dioxide Level 23 mmol/L (21-32) 30 mmol/L (21-32) Anion Gap 16 (6-14) 10 (6-14) Blood Urea Nitrogen 77 mg/dL (8-26) 36 mg/dL (8-26) Creatinine 17.9 mg/dL (0.7-1.3) 11.6 mg/dL (0.7-1.3) Estimated GFR (Cockcroft-Gault) 3.1 6.2 BUN/Creatinine Ratio 4 (6-20) Glucose Level 90 mg/dL (70-99) 100 mg/dL (70-99) Calcium Level 8.3 mg/dL (8.5-10.1) 8.3 mg/dL (8.5-10.1) Magnesium Level 2.5 mg/dL (1.8-2.4) Total Bilirubin 0.3 mg/dL (0.2-1.0) Aspartate Amino Transf (AST/SGOT) 23 U/L (15-37) Alanine Aminotransferase (ALT/SGPT) 21 U/L (16-63) Alkaline Phosphatase 55 U/L (46-116) Troponin I Quantitative 0.074 ng/mL (0.000-0.055) Total Protein 8.4 g/dL (6.4-8.2) Albumin 3.2 g/dL (3.4-5.0) Albumin/Globulin Ratio 0.6 (1.0-1.7) Laboratory Tests Test 02/19/20 03:53 Sodium Level 138 mmol/L (136-145) Potassium Level 4.0 mmol/L (3.5-5.1) Chloride Level 98 mmol/L (98-107) Carbon Dioxide Level 30 mmol/L (21-32) Anion Gap 10 (6-14) Blood Urea Nitrogen 36 mg/dL (8-26) Creatinine 11.6 mg/dL (0.7-1.3) Estimated GFR (Cockcroft-Gault) 6.2 Glucose Level 100 mg/dL (70-99) Calcium Level 8.3 mg/dL (8.5-10.1) Microbiology 02/18/20 Blood Culture - Preliminary, Resulted NO GROWTH AFTER 1 DAY Medications Current Medications Piperacillin Sod/ Tazobactam Sod 3.375 gm/Sodium Chloride 50 ml @ 100 mls/hr 1X ONCE IV ; Start 02/18/20 at 09:15; Stop 02/18/20 at 09:44; Status UNV Piperacillin Sod/ Tazobactam Sod 2.25 gm/Sodium Chloride 50 ml @ 100 mls/hr 1X ONCE IV Last administered on 02/18/20at 09:26; Start 02/18/20 at 09:15; Stop 02/18/20 at 09:44; Status DC Hydralazine HCl (Apresoline Inj) 20 mg 1X ONCE IVP Last administered on 02/18/20at 09:28; Start 02/18/20 at 09:30; Stop 02/18/20 at 09:31; Status DC Ondansetron HCl (Zofran) 4 mg PRN Q4HRS PRN IV NAUSEA/VOMITING; Start 02/18/20 at 10:00 Acetaminophen (Tylenol) 650 mg PRN Q4HRS PRN PO TEMP OVER 100.4F OR MILD PAIN Last administered on 02/18/20at 22:04; Start 02/18/20 at 10:00 Guaifenesin (Robitussin) 200 mg PRN Q4HRS PRN PO COUGH; Start 02/18/20 at 10:00 Lorazepam (Ativan) 0.5 mg PRN Q4HRS PRN PO ANXIETY / AGITATION Last administered on 02/18/20at 23:51; Start 02/18/20 at 10:00 Piperacillin Sod/ Tazobactam Sod 2.25 gm/Sodium Chloride 50 ml @ 100 mls/hr Q6HRS IV Last administered on 02/19/20at 05:01; Start 02/18/20 at 12:00 Labetalol HCl (Normodyne Iv Push) 10 mg PRN Q2HRS PRN IVP HTN, SBP > 160mmHg Last administered on 02/19/20at 03:25; Start 02/18/20 at 10:00 Guaifenesin (Robitussin Dm) 10 ml STK-MED ONCE .ROUTE ; Start 02/18/20 at 09:51; Stop 02/18/20 at 09:51; Status DC Heparin Sodium (Porcine) (Heparin Sodium) 5,000 unit Q8HRS SQ Last administered on 02/19/20at 05:02; Start 02/18/20 at 14:00 Abacavir Sulfate (Ziagen) 600 mg BID PO ; Start 02/18/20 at 21:00; Status Cancel Amlodipine Besylate (Norvasc) 5 mg DAILY PO Last administered on 02/18/20at 13:48; Start 02/18/20 at 14:00 Carvedilol (Coreg) 25 mg BIDWMEALS PO Last administered on 02/18/20at 18:40; Start 02/18/20 at 17:00 Non-Formulary Medication (Lamivudine ) 50 mg DAILY PO ; Start 02/19/20 at 09:00; Status Cancel Non-Formulary Medication (Dolutegravir Sodium (Tivicay)) 50 mg DAILY PO ; Start 02/19/20 at 09:00; Status UNV Sodium Chloride 1,000 ml @ 1,000 mls/hr Q1H PRN IV hypotension; Start 02/18/20 at 13:41; Stop 02/18/20 at 19:40; Status DC Albumin Human 200 ml @ 200 mls/hr 1X PRN PRN IV Hypotension; Start 02/18/20 at 13:45; Stop 02/18/20 at 19:44; Status DC Acetaminophen (Tylenol) 500 mg 1X PRN PRN PO MILD PAIN / TEMP > 100.3'F; Start 02/18/20 at 13:45; Stop 02/19/20 at 13:44 Diphenhydramine HCl (Benadryl) 25 mg 1X PRN PRN IV ITCHING; Start 02/18/20 at 13:45; Stop 02/19/20 at 13:44 Diphenhydramine HCl (Benadryl) 25 mg 1X PRN PRN IV ITCHING; Start 02/18/20 at 13:45; Stop 02/19/20 at 13:44 Sodium Chloride 1,000 ml @ 400 mls/hr Q2H30M PRN IV PATENCY; Start 02/18/20 at 13:41; Stop 02/19/20 at 01:40; Status DC Info (PHARMACY MONITORING -- do not chart) 1 each PRN DAILY PRN MC SEE COMMENTS; Start 02/18/20 at 13:45 Abacavir Sulfate (Ziagen) 600 mg BID PO ; Start 02/18/20 at 21:00; Status UNV Sodium Chloride 1,000 ml @ 1,000 mls/hr Q1H PRN IV hypotension; Start 02/19/20 at 07:29; Stop 02/19/20 at 13:28 Albumin Human 200 ml @ 200 mls/hr 1X PRN PRN IV Hypotension; Start 02/19/20 at 07:30; Stop 02/19/20 at 13:29 Acetaminophen (Tylenol) 500 mg 1X PRN PRN PO MILD PAIN / TEMP > 100.3'F; Start 02/19/20 at 07:30; Stop 02/20/20 at 07:29 Diphenhydramine HCl (Benadryl) 25 mg 1X PRN PRN IV ITCHING; Start 02/19/20 at 07:30; Stop 02/20/20 at 07:29 Diphenhydramine HCl (Benadryl) 25 mg 1X PRN PRN IV ITCHING; Start 02/19/20 at 07:30; Stop 02/20/20 at 07:29 Sodium Chloride (Normal Saline Flush) 10 ml 1X PRN PRN IV AP catheter pack; Start 02/19/20 at 07:30; Stop 02/20/20 at 07:29 Sodium Chloride (Normal Saline Flush) 10 ml 1X PRN PRN IV ELECTRON GUN INSPECTOR catheter pack; Start 02/19/20 at 07:30; Stop 02/20/20 at 07:29 Sodium Chloride 1,000 ml @ 400 mls/hr Q2H30M PRN IV PATENCY; Start 02/19/20 at 07:29; Stop 02/19/20 at 19:28 Info (PHARMACY MONITORING -- do not chart) 1 each PRN DAILY PRN MC SEE COMMENTS; Start 02/19/20 at 07:30 Non-Formulary Medication 1 ea DAILY PO ; Start 02/19/20 at 09:00; Status UNV Active Scripts Active Reported Tivicay (Dolutegravir Sodium) 25 Mg Tablet 50 Mg PO DAILY Ziagen (Abacavir Sulfate) 300 Mg Tablet 600 Mg PO BID Lamivudine 100 Mg Tablet 50 Mg PO DAILY Carvedilol 25 Mg Tablet 25 Mg PO BIDWMEALS Amlodipine Besylate 5 Mg Tablet 5 Mg PO DAILY Vitals/I & O Vital Sign - Last 24 Hours 02/18/20 02/18/20 02/18/20 02/18/20 09:00 09:28 09:30 09:55 Pulse 116 99 89 91 B/P (MAP) 227/126 (159) 227/126 191/111 (137) 192/102 (132) Pulse Ox 92 97 97 O2 Delivery Nasal Cannula Nasal Cannula Nasal Cannula O2 Flow Rate 4.0 6.0 6.0 02/18/20 02/18/20 02/18/20 02/18/20 10:30 11:00 12:21 13:48 Temp 98.4 98.4 Pulse 100 100 100 Resp 19 B/P (MAP) 193/95 (127) 193/95 193/95 Pulse Ox 98 O2 Delivery Nasal Cannula Nasal Cannula O2 Flow Rate 6.0 6.0 02/18/20 02/18/20 02/18/20 02/18/20 14:00 18:40 18:41 19:30 Temp 97.6 96.0 97.6 96.0 Pulse 82 82 82 72 Resp 15 18 B/P (MAP) 165/102 (123) 165/102 165/102 170/93 (118) Pulse Ox 98 98 O2 Delivery Nasal Cannula Nasal Cannula O2 Flow Rate 6.0 2.0 02/18/20 02/18/20 02/19/20 02/19/20 19:50 22:59 03:00 03:25 Temp 98.1 97.8 98.1 97.8 Pulse 76 147 75 Resp 18 20 B/P (MAP) 178/101 (126) 195/117 (143) 195/117 Pulse Ox 96 95 O2 Delivery Nasal Cannula Nasal Cannula Room Air O2 Flow Rate 2.0 2.0 Intake and Output 02/18/20 02/18/20 02/19/20 15:00 23:00 07:00 Intake Total 180 ml 50 ml 300 ml Output Total 300 ml Balance 180 ml 50 ml 0 ml JENNIFER WHELAN MD February 19, 2020 08:41
[2020-02-19] MEDS: CARVEDILOL 12.5 MG TABLET. PO SCH (08:55)
[2020-02-19] MEDS: amLODIPine BESYLATE 5 MG TABLET PO SCH (08:56)
[2020-02-19] MEDS ORDERED: DOLUTEGRAVIR SODIUM 50 MG PO SCH (09:00)
[2020-02-19] MEDS: ABACAVIR 300 MG PO SCH (09:00)
[2020-02-19] MEDS ORDERED: LAMIVUDINE 50 MG PO SCH ×2 (09:00)
--- NOTE | 2020-02-19 10:23 | NUR ---
Patient refused dialysis this morning. Dialysis nurse notified.
[2020-02-19 11:00] VITALS: BP 160/104
--- NOTE | 2020-02-19 11:27 | PDOC ---
Renal-Progress Notes Subjective Notes Notes NONE History of Present Illness Hx of present illness NO CHANGE Vitals Vitals Vital Signs Date Time Temp Pulse Resp B/P (MAP) Pulse Ox O2 Delivery O2 Flow Rate FiO2 02/19/20 11:00 97.6 76 16 160/104 (122) 97 Room Air 97.6 02/19/20 08:00 2.0 Weight Weight [ ] I.O. Intake and Output Intake and Output 02/19/20 06:59 Intake Total 530 ml Output Total 300 ml Balance 230 ml Intake Oral 380 ml IV Total 150 ml Output Urine Total 300 ml # Voids 1 # Bowel Movements 1 Labs Labs Laboratory Tests Test 02/19/20 03:53 Sodium Level 138 mmol/L (136-145) Potassium Level 4.0 mmol/L (3.5-5.1) Chloride Level 98 mmol/L (98-107) Carbon Dioxide Level 30 mmol/L (21-32) Anion Gap 10 (6-14) Blood Urea Nitrogen 36 mg/dL (8-26) Creatinine 11.6 mg/dL (0.7-1.3) Estimated GFR (Cockcroft-Gault) 6.2 Glucose Level 100 mg/dL (70-99) Calcium Level 8.3 mg/dL (8.5-10.1) Micro Micro Microbiology 02/18/20 Blood Culture - Preliminary, Resulted NO GROWTH AFTER 1 DAY Review of Systems Constitutional: yes: alert, oriented Ears/Nose/Throat: Yes: no symptom reported Eyes: Yes: no symptom reported Pulmonary: Yes dyspnea Cardiovascular: Yes chest pain Gastrointestional: Yes: constipation Genitourinary: Yes: no symptom reported Musculoskeletal: Yes: muscle stiffness Skin: Yes no symptom reported Psychiatric/Neurological: Yes: no symptom reported Endocrine: Yes: no symptom reported Assessment Assessment IMP ESRD NON COMPLIANCE ANEMIA OF ESRD ACUTE HYPOXIC RESP FAILURE PNEUMONIA CHEST PAIN HIV - ON MEDS PLAN HD MWF SCHEDULED FOR EXTRA HD TODAY BUT PT HAS REFUSED CONT WITH ANTIBIOTICS PUI FOR COVID 19 WILL FOLLOW MAHSA BULLOCK MD February 19, 2020 11:27
[2020-02-19] MEDS ORDERED: AMOXICILLIN/K CLAV 500/125MG TABLET. PO SCH (11:45)
--- NOTE | 2020-02-19 12:10 | NUR ---
IP: Pt is COVID negative.
[2020-02-19] MEDS ORDERED: AMOX1TAB10 PO (12:51)
--- NOTE | 2020-02-19 12:55 | PDOC3 ---
Discharge Summary Visit Information Date of Admission: February 18, 2020 Date of Discharge: February 19, 2020 Admitting Diagnosis: Acute hypoxic respiratory failure Final Diagnosis Problems Medical Problems: (1) ESRD (end stage renal disease) on dialysis Status: Acute (2) Hypertension Status: Acute (3) Pneumonia Status: Acute (4) Suspected 2019-nCoV infection Status: Acute Brief Hospital Course Allergies Allergies Coded Allergies Type Severity Reaction Last Updated Verified No Known Drug Allergies 02/18/20 No Vital Signs Vital Signs Date Time Temp Pulse Resp B/P (MAP) Pulse Ox O2 Delivery O2 Flow Rate FiO2 02/19/20 11:00 97.6 76 16 160/104 (122) 97 Room Air 97.6 02/19/20 08:00 2.0 Lab Results Laboratory Tests Test 02/18/20 08:07 02/18/20 09:00 02/19/20 03:53 White Blood Count 5.6 x10^3/uL (4.0-11.0) Red Blood Count 3.89 x10^6/uL (4.30-5.70) Hemoglobin 11.5 g/dL (13.0-17.5) Hematocrit 34.4 % (39.0-53.0) Mean Corpuscular Volume 89 fL (79-100) Mean Corpuscular Hemoglobin 30 pg (25-35) Mean Corpuscular Hemoglobin Concent 34 g/dL (31-37) Red Cell Distribution Width 16.6 % (11.5-14.5) Platelet Count 228 x10^3/uL (140-400) Neutrophils (%) (Auto) 75 % (31-73) Lymphocytes (%) (Auto) 15 % (24-48) Monocytes (%) (Auto) 8 % (0-9) Eosinophils (%) (Auto) 2 % (0-3) Basophils (%) (Auto) 0 % (0-3) Neutrophils # (Auto) 4.2 x10^3/uL (1.8-7.7) Lymphocytes # (Auto) 0.9 x10^3/uL (1.0-4.8) Monocytes # (Auto) 0.4 x10^3/uL (0.0-1.1) Eosinophils # (Auto) 0.1 x10^3/uL (0.0-0.7) Basophils # (Auto) 0.0 x10^3/uL (0.0-0.2) Prothrombin Time 13.2 SEC (11.7-14.0) Prothromb Time International Ratio 1.0 (0.8-1.1) Activated Partial Thromboplast Time 32 SEC (24-38) Sodium Level 138 mmol/L (136-145) 138 mmol/L (136-145) Potassium Level 4.4 mmol/L (3.5-5.1) 4.0 mmol/L (3.5-5.1) Chloride Level 99 mmol/L (98-107) 98 mmol/L (98-107) Carbon Dioxide Level 23 mmol/L (21-32) 30 mmol/L (21-32) Anion Gap 16 (6-14) 10 (6-14) Blood Urea Nitrogen 77 mg/dL (8-26) 36 mg/dL (8-26) Creatinine 17.9 mg/dL (0.7-1.3) 11.6 mg/dL (0.7-1.3) Estimated GFR (Cockcroft-Gault) 3.1 6.2 BUN/Creatinine Ratio 4 (6-20) Glucose Level 90 mg/dL (70-99) 100 mg/dL (70-99) Calcium Level 8.3 mg/dL (8.5-10.1) 8.3 mg/dL (8.5-10.1) Magnesium Level 2.5 mg/dL (1.8-2.4) Total Bilirubin 0.3 mg/dL (0.2-1.0) Aspartate Amino Transf (AST/SGOT) 23 U/L (15-37) Alanine Aminotransferase (ALT/SGPT) 21 U/L (16-63) Alkaline Phosphatase 55 U/L (46-116) Troponin I Quantitative 0.074 ng/mL (0.000-0.055) Total Protein 8.4 g/dL (6.4-8.2) Albumin 3.2 g/dL (3.4-5.0) Albumin/Globulin Ratio 0.6 (1.0-1.7) Coronavirus (COVID-19)(PCR) See separate report Laboratory Tests Test 02/19/20 03:53 Sodium Level 138 mmol/L (136-145) Potassium Level 4.0 mmol/L (3.5-5.1) Chloride Level 98 mmol/L (98-107) Carbon Dioxide Level 30 mmol/L (21-32) Anion Gap 10 (6-14) Blood Urea Nitrogen 36 mg/dL (8-26) Creatinine 11.6 mg/dL (0.7-1.3) Estimated GFR (Cockcroft-Gault) 6.2 Glucose Level 100 mg/dL (70-99) Calcium Level 8.3 mg/dL (8.5-10.1) Brief Hospital Course Mr Lynch is a 34yo M w/ PMHx Asthma, HIV, Hypertension, ESRD who was brought here by EMS from home due to trouble breathing and nonproductive cough started suddenly yesterday. Patient had history of end-stage renal failure, on hemodialysis every Tuesday. Patient's last dialysis was on 02/15/2020, and due to the holiday weekend is not scheduled for dialysis until 02/18. Patient said he was tested for COVID-19 a week ago at [facility] and it came back negative. Patient denies any abdominal pain, no nausea vomiting. Patient denies any fever. Patient could not lie flat on his back due to trouble breathing. CXR with diffuse interstitial infiltrates bilaterally. Afebrile WBC 5.6 Hb 11.5, platelets 228 NA 138, K4.4, BUN 7 7, CR 17.9, glucose 90, troponin 0 0.076, albumin 3.2. BP 219/1 2 8, hypoxic requiring 4 L nasal cannula oxygen. He is actively coughing in front of me. States he is taoist about taking his HIV medications. No recent sick contacts. EKG sinus with no ST segment changes, diffuse T wave inversions. Had emergent dialysis on 02/17. BP still elevated overnight. He is feeling better, but will not get off the phone during interview, but tells me he wants to go home and have dialysis tomorrow at his regular time, does not wish to have additional session today. COVID 19 testing resulted Negative. Problem list: Acute hypoxic respiratory failure - no history of O2 requirements, likely fluid overload complicated by a possible pneumonia, likely gram negative given his dialysis status and asthma Pneumonia - will treat with zosyn, given his vast improvement after dialysis and lack of cough, will change to augmentin for 4 days Hypertensive emergency given hydralazine, will add labetalol, reconcile home medications, improved with urgent dialysis. Chest pain - will trend troponins, likely 2/2 fluid overload/pneumonia. Resolved Suspected 2019-nCoV infection - in COVID isolation unit, negative RT-PCR results ESRD (end stage renal disease) on dialysis - started in 2019, he is not clear about the etiology. Will consult nephrology given his symptoms of hypoxia and labs consistent with ESRD he improved with dialysis Anemia - of chronic disease, will monitor Asthma - with acute respiratory distress, improved with ativan HIV - consistent with his medications. Unknown viral load and CD4+ status Greater than 30 minutes spent on d/c Discharge Information Condition at Discharge: Improved Follow Up: Weeks (1) Disposition/Orders: D/C to Home Scheduled Abacavir Sulfate (Ziagen) 300 Mg Tablet, 600 MG PO BID for HIV, (Reported) Entered as Reported by: DELPHINE HUANG RN on 02/18/201210 Last Action: Continued on 02/18/201330 by DELPHINE UHANG RN Amlodipine Besylate (Amlodipine Besylate) 5 Mg Tablet, 5 MG PO DAILY for HTN, (Reported) Entered as Reported by: DELPHINE HUANG RN on 02/18/201210 Last Action: Continued on 02/18/201330 by DELPHINE HUANG RN Amoxicillin/Potassium Clav (Amox Tr-K Clv 500-125 Mg Tab) 1 Each Tablet, 1 TAB PO DAILY for Bronchitis for 4 Days, #4 Prescribed by: JENNIFER WHELAN MD on 02/19/20 1251 Carvedilol (Carvedilol) 25 Mg Tablet, 25 MG PO BIDWMEALS for CARDIAC, (Reported) Entered as Reported by: DELPHINE HUANG RN on 02/18/201210 Last Action: Converted on 02/18/201330 by DELPHINE HUANG RN Dolutegravir Sodium (Tivicay) 25 Mg Tablet, 50 MG PO DAILY for HIV, (Reported) Entered as Reported by: DELPHINE HUANG RN on 02/18/201330 Last Action: Converted on 02/18/201331 by DELPHINE HUANG RN Lamivudine (Lamivudine) 100 Mg Tablet, 50 MG PO DAILY for HIV, (Reported) Entered as Reported by: DELPHINE HUANG RN on 5/25/20 1211 Last Action: Converted on 02/18/20 1331 by GIO CESPEDES CHRISTOPHER S MD February 19, 2020 12:55
[2020-02-19 13:50] VITALS: BP 170/115
[2020-02-19 13:59] VITALS: BP 170/115
[2020-02-19] MEDS ORDERED: cloNIDine HCL 0.1 MG TABLET PO ONE (14:00)
[2020-02-19] MEDS ORDERED: AMLO5TAB10 PO (14:05)
--- NOTE | 2020-02-19 14:15 | NUR ---
Discharge Note: NAYANA OSBORN [address] [place] [address] Discharge instructions and discharge home medications reviewed with Patient and a copy given. All questions have been answered and understanding verbalized. The following instructions and handouts were given: discharge instructions, pneumonia info, ESRD info. Discontinued lines and drains: Peripheral IV intact. Patient removed it himself with no complications. Patient discharged to Home or Self Care with Friend via [facility] at 1415. Dr. Spangler had been notified of patient's BP being elevated before he left, medication administered.
== END 2020-02-19 14:15 | disposition home or self-care (01) | DRG 304 ==
LOC: ER 07:10 → 6 SOUTH 09:00
PROVIDERS: ADMIT Internal Medicine; ATTEND Internal Medicine
PROC: 5A1D70Z Performance of Urinary Filtration, Intermittent, Less than 6 Hours Per Day (ICD-10-PCS; principal; 2020-02-18)
DX: I16.1 Hypertensive emergency (principal); J15.6 Pneumonia due to other Gram-negative bacteria; J96.01 Acute respiratory failure with hypoxia; N18.6 End stage renal disease; I12.0 Hypertensive chronic kidney disease with stage 5 chronic kidney disease or end stage renal disease; D63.1 Anemia in chronic kidney disease; E87.70 Fluid overload, unspecified; F41.9 Anxiety disorder, unspecified; J45.909 Unspecified asthma, uncomplicated; Z82.49 Family history of ischemic heart disease and other diseases of the circulatory system; Z91.19 Patient's noncompliance with other medical treatment and regimen; Z99.2 Dependence on renal dialysis; Z20.828 Contact with and (suspected) exposure to other viral communicable diseases
CPT/HCPCS: 36415; 71045; 80048; 80053; 83735; 84484; 85025; 85610; 85730; 87040; 93005; 96365; 96375; J0360; J1644; J2543; J3490; 99291-25; G0378; U0003-CS